=== PATIENT | male | born 1980 | race Caucasian/White ===

== ENCOUNTER → 2019-04-04 15:41 | Outpatient (CLI) | payer OTHER, SELFPAY ==
[2019-04-04 15:37] VITALS: BMI 33.5
--- NOTE | 2019-04-04 15:43 | RAD_ITS ---
STUDY: X-RAY - RIGHT ELBOW REASON FOR EXAM: Male, 38 years old. Atraumatic pain. TECHNIQUE: 3 view(s) of the elbow. COMPARISON: None. FINDINGS: Normal visualized humerus, radius and ulna. Normal radiocapitellar and ulnotrochlear articulations. The soft tissue structures are unremarkable. RAD/Elbow min 3 Views IMPRESSION: Normal x-ray examination of the elbow. Electronically Signed: Rubina Guadarrama MD at 16:13 EST , Service support ,
--- NOTE | 2019-04-04 15:43 | RAD_ITS ---
STUDY: X-RAY - LEFT ELBOW REASON FOR EXAM: Male, 38 years old. Atraumatic pain. TECHNIQUE: 3 view(s) of the elbow. COMPARISON: None. FINDINGS: Normal visualized humerus, radius and ulna. Normal radiocapitellar and ulnotrochlear articulations. Tiny olecranon spur. The soft tissue structures are unremarkable. RAD/Elbow min 3 Views IMPRESSION: No acute bone or joint findings. Negative for fracture, dislocation or joint effusion. Tiny olecranon spur. Electronically Signed: Rubina Guadarrama MD at 16:13 EST , Service support ,
== END ==
PROVIDERS: Family Provider Family Medicine; PCP Family Medicine; Referring Provider Orthopaedic Surgery; Visit Provider Orthopaedic Surgery
DX: M25.529 Pain in unspecified elbow (principal)
CPT/HCPCS: 73080

== ENCOUNTER 2019-11-20 10:15 | Day surgery (SDC) | payer BC, OTHER, SELFPAY ==
[2019-11-07 14:14] VITALS: BMI 33.5
[2019-11-20 10:38] VITALS: BP 101/64; PULSE 65; RESP 16; TEMP 36.6; O2SAT 100; BMI 34.4
[2019-11-20] MEDS: Lactated Ringers 1,000 ML 100 ML IV (11:15)
[2019-11-20] MEDS: Cefazolin 2 GM in 0.9% Normal Saline 100 ML IV (13:05)
[2019-11-20] MEDS: Bupiv/Epi 0.5% Mpf 30 ML Vial (13:29)
--- NOTE | 2019-11-20 13:43 | DCINST_ITS ---
Discharge Diet: No Restrictions Call your doctor if you observe: Shortness of breath, Chest pain Additional Instructions: Must keep dressing on clean and dry for 48 hours. Then may remove and begin showering daily with antibacterial soap running over the incision. Do not submerge incision underwater for 3 weeks such as a pool tub or poe. Encourage elbow and wrist and finger range of motion immediately however against no resistance. Should not lift push or pull anything with operative extremity. Ice and elevate next 72 hours. Only take pain medication as prescribed as it is a narcotic and can be addictive and abusive. Supplement and substitute with Tylenol and or [id number] NSAID as pain allows. Call with any questions or concerns follow-up in 2 weeks. Do not remove sutures. Allergies/Adverse Reactions: Allergies Iodinated Contrast Media [DYEE] Allergy (Verified 11/20/19 10:37) Hives Medications to take at Discharge Acetaminophen [Acetaminophen Extra Strength] 1,000 mg PO Q6H PRN PRN 11/13/19 Ibuprofen 800 mg PO Q6H PRN PRN 11/13/19 Omeprazole Magnesium [Prilosec Otc] 20 mg PO DAILY PRN 11/13/19 Hydrocodone/Acetaminophen [[place] 5-325 Tablet] 5 mg PO Q4H PRN PRN 5 Days #20 tab 11/20/19 The following prescriptions were given: Hydrocodone/Acetaminophen [[place] 5-325 Tablet] 5 mg PO Q4H PRN PRN 5 Days #20 tab PRN Reason: Pain Transmission Status: Sent to [facility] Primary Care Physician: Tr Roblero III, MD [Primary Care Provider] - Test Results: Test results from this visit will be discussed in further detail at your follow- up appointment, if applicable. Please Follow Up With: Be Bah DO - 2 weeks
--- NOTE | 2019-11-20 13:43 | PCM.HP.BLA ---
History and Physical Date of Admission: 11/20/19 Intake Vital Signs 11/07/19 BMI 33.5 Intake Visit Reasons: Bilat Elbows Allergies Iodinated Contrast Media [DYEE] Allergy (Verified 06/11/16 18:21) Hives [facility] Social History (Updated 11/07/19 @ 15:[address] Be Bah DO) Smoking Status: Current some day smoker HPI Bilat Elbows: Details: Parts of this documentation were recorded by a scribe, this documentation accurately reflects the service provided and the decisions made by me, Dr. Be Bah DO 11/07/19 0751. SIERRA HERNANDEZ is a 39 year old M here today for BL medial epicondyle pain. States the injection he has had were effective for about 1.5 months then his pain returns. He states the right elbow is worse than the left but he has pain of the BL epicondyles. He also states that he has been having lateral epicondyle pain of the left elbow but this is very mild. He states he only did about 3 PT. ROS Musc Reports limited joint movement, Denies numbness, Denies radiating pain into limb, Reports stiffness, Denies tingling Skin/Breast Denies redness, Denies lesions, Denies rash Neuro No numbness, No tingling Ortho Exam Right Elbow Skin/Wound: No eccymosis, No erythema, No Swelling ROM: Yes Flexion 0-140, Extension 0, Supination 0-90 and Pronation 0-80 Test: Yes TTP Medial Epicondyle, No TTP Lateral Epicondyle, No Ulnar Nerve Subluxation Sensation: Radial: I, Ulnar: I, Median: I Motor: Elbow Extension: 5, Elbow Flexion: 5 ELBOW: Tender to palpation medial epicondyle Left Elbow Skin/Wound: No eccymosis, No erythema, No Swelling Test: Yes TTP Medial Epicondyle, No TTP Lateral Epicondyle, No Ulnar Nerve Subluxation ROM: Yes Flexion 0-140, Extension 0, Supination 0-90 and Pronation 0-80 Sensation: Radial: I, Ulnar: I, Median: I ELBOW: biceps intact and nontender today Office Procedures Depo-Medrol 40 mg/mL suspension for injection (methylprednisolone acetate) 20 mg intra-articular ONCE Injections Yes Medial Epicondyle Left Details: Obtained consent for injection. Under sterile conditions, injected the patients left medial epicondyle with 1/2cc bupivacaine and 1/2cc lidocaine and 1/2ccDepoMedrol. The patient tolerated the injection well without any noted complication. Patient should call our office if redness develops, pain worsens or if they have any concerns. 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 Medial epicondylitis of both elbows M77.01; M77.02 Plan Patient educated that he has medial epicondylitis and since the injections aren't effective then the other Treatment options include additional PT or osteotomy for surgical repair and this will promote healing. Educated that if he does have the surgery he can not push or pull anything for up to 6 weeks post op and he is only able to have one done at a time. Recommended that he will be off work for about 6-10 weeks. Reviewed the pre-operative plans with the patient. Risks and benefits of the procedure were fully explained, including but not limited to infection, neurovascular injury, continued pain, arthritis, stiffness, need for further surgery, re-injury, DVT, PE, general risks of anesthesia, and loss of limb or life. Educated that he can have an injection of the non-operative arm and if he does wish to have injections of the BL medial epicondyles then he will have to wait about 3 months prior to surgery. Wishes to proceed with left medial epicondyle injection. Patient also signed surgery consent for surgery of the right medial epicondyle and he will call us with the date. Follow up as needed or sooner if pain, swelling, numbness or associated symptoms, or concerns develop. All questions answered. Patient in agreement of plan. Orders Orders: Ortho Injections Today M77.01, M77.02 Coding Level of Care Code Off vis,est,level 3 Diagnoses Medial epicondylitis of both elbows M77.01; M77.02 Additional Codes division operations manager.med () I have re-examined the patient. There are no clinical changes since date of exam Procedure Criteria Procedure Type: Elective COVID Risk Discussion: The surgeon/proceduralist and patient have discussed in detail the risk of exposure to and/or potential harm posed by the COVID-19 virus with having a surgery/procedure at this time versus the risk of delaying the surgery/procedure. It is not possible to know either the risk of delaying the surgery or procedure or chance of getting an infection with perfect accuracy, but a joint decision was made between the patient and the surgeon/proceduralist to proceed at this time with the scheduled surgery/procedure as indicated on the consent form.
[2019-11-20 13:46] VITALS: BP 101/64; BP 110/79; PULSE 56; RESP 16; TEMP 36.3; O2SAT 98
--- NOTE | 2019-11-20 13:48 | PCM.OPRPT ---
Report of Operation Date of Procedure: 11/20/19 Description of Surgical Findings:: Preoperative diagnosis: Right elbow medial epicondylitis chronic Postoperative diagnosis: Same Procedure: Right elbow medial elbow flexor tenotomy Anesthesia: General EBL: None Complications: None Condition: Stable to PACU Indication for procedure: 39-year-old male patient with chronic refractory medial epicondylitis was failed conservative treatment extensively who wished to undergo a medial elbow tenotomy to attempt to alleviate symptoms risk benefits and alternatives were reviewed including risk of bleeding infection nerve, artery, bone, tissue damage, blood clot need for further surgery and continued pain. Procedure: Patient was met in the preoperative holding area once again the operative extremity was identified by both patient and physician was marked. Patient was met by anesthesia brought back to the operating on a wheeled cart and transferred the operating table in the supine position. Patient was prepped and draped in the usual sterile fashion and a timeout was called to ensure the proper patient procedure and extremity were being contemplated. An Esmarch was used to exsanguinate the extremity and the tourniquet was inflated to 250 mmHg. A transverse incision was made over the origin of the medial flexor muscle mass and medial epicondyle this was made in line with the elbow flexion creases. Subcutaneous tissue was dissected and a badillo elevator was used to visualize the medial epicondyle muscle mass and insertion. With attention to avoid injury to the ulnar nerve posteriorly a Stanley blade was used to perform a tenotomy the wound was thoroughly irrigated and was closed with 3-0 Vicryl and 3-0 nylon. 0.5% marcaine with epinephrine was used in the skin. dressing was applied in the form of Xeroform 4 x 4 ABD web roll and an Fidencio wrap tourniquet was let down there is no intraoperative complications all counts were correct and patient was brought back to the PACU in stable condition.
[2019-11-20 14:00] VITALS: BP 101/64; BP 113/83; PULSE 60; RESP 16; O2SAT 96
[2019-11-20 14:05] VITALS: BP 101/64; BP 111/82; PULSE 62; RESP 16; TEMP 36.9; O2SAT 98
[2019-11-20] MEDS: HYDROcodone Bitartrate/Apap 5/325 Tablet PO (14:25)
[2019-11-20 14:59] VITALS: BP 101/64; BP 102/65; PULSE 60; RESP 18; TEMP 36.9; O2SAT 97
== END 2019-11-20 15:15 | disposition home or self-care (01) ==
LOC: SDC 10:19 → AC 10:20
PROVIDERS: Anesthesiology; PCP Family Medicine; Referring Provider Orthopaedic Surgery; Visit Provider Orthopaedic Surgery
PROC: (CPT 24359; principal; 2019-11-20 13:00)
DX: M77.01 Medial epicondylitis, right elbow (principal); K21.9 Gastro-esophageal reflux disease without esophagitis; Z87.891 Personal history of nicotine dependence; J45.909 Unspecified asthma, uncomplicated; G47.30 Sleep apnea, unspecified; K44.9 Diaphragmatic hernia without obstruction or gangrene
CPT/HCPCS: 24359; 87635; G2023; J7120; U0003